=== PATIENT | female | born 1985 | race Caucasian/White ===

== ENCOUNTER 2022-08-01 18:58 | Emergency (ER) | payer MEDICAID ==
[~2022-08-01] VITALS: Ht 170.2 cm; Wt 59.0 kg
[~2022-08-01 18:58] MED LIST: HYDR1TAB PO; NO HOME MEDS; ZOF4T PO
[2022-08-01 19:17] VITALS: BP 129/73
[2022-08-01] MEDS ORDERED: CLIN-97 PO (19:54)
== END 2022-08-01 19:59 | disposition home or self-care (01) ==
LOC: ER 18:59
DX: K04.7 Periapical abscess without sinus (principal); Z72.89 Other problems related to lifestyle; Z79.899 Other long term (current) drug therapy
CPT/HCPCS: 99283

== ENCOUNTER 2022-08-31 22:49 | Emergency (ER) | payer MEDICAID ==
[~2022-08-31] VITALS: Ht 170.2 cm; Wt 63.6 kg
[~2022-08-31 22:49] MED LIST changes: +CLIN-97 PO
[2022-08-31 22:58] VITALS: BP 107/66
[2022-08-31] MEDS ORDERED: HYDROcodone/acetaminophen 5mg/325mg tablet PO ONE (23:50)
[2022-08-31] MEDS ORDERED: LIDOcaine 1% W/epiNEPHrine 1:100,000 20ml vial IJ ONE (23:55)
[2022-09-01] MEDS ORDERED: sulfamethoxazole/trimethoprim DS (800/160mg) tablet PO ONE (00:25)
[2022-09-01] MEDS ORDERED: SULF1TAB49 PO (00:26)
== END 2022-09-01 00:44 | disposition home or self-care (01) ==
LOC: ER 22:50
DX: N75.1 Abscess of Bartholin's gland (principal)
CPT/HCPCS: 56420; 87070; 87075; 87077; 87186; 99284